=== PATIENT | male | born 1990 | race Two or more races ===

== ENCOUNTER 2023-02-24 18:19 | Emergency (ER) | payer OTHER ==
[~2023-02-24] VITALS: Ht 177.8 cm; Wt 74.8 kg
== END 2023-02-24 21:49 | disposition home or self-care (01) ==
LOC: ER 18:19
DX: R10.84 Generalized abdominal pain (principal); Z87.09 Personal history of other diseases of the respiratory system

== ENCOUNTER 2025-10-01 17:35 | Inpatient (IN) | payer OTHER ==
[~2025-10-01] VITALS: Ht 177.8 cm; Wt 81.6 kg
--- NOTE | 2025-10-01 17:50 | NUR ---
PTE ALERTA Y ORIENTADO X3 REFIERE DOLOR ABDOMINAL DESDE EL SABADO. SE MIDEN S/V Y S
[2025-10-01] MEDS ORDERED: ONDANSETRON HCL 2 MG/ML VIAL IV ONE (19:00)
[2025-10-01] MEDS ORDERED: 0.9 % SODIUM CHLORIDE 500 ML IV SCH (19:00)
[2025-10-01] MEDS ORDERED: 0.9 % SODIUM CHLORIDE 500 ML IV ONE (19:00)
[2025-10-01] MEDS ORDERED: MORPHINE SULFATE 4 MG/ML CARTRIDGE IV ONE (19:00)
[2025-10-01] MEDS ORDERED: FAMOTIDINE/PF 20 MG/2 ML VIAL IV ONE (19:00)
[2025-10-01] MEDS ORDERED: FAMOTIDINE/PF 20 MG/2 ML VIAL ONE (19:04)
[2025-10-01] MEDS ORDERED: ONDANSETRON HCL 2 MG/ML VIAL ONE (19:04)
[2025-10-01 19:32] LABS: BASO % 0.3 % (0.1-1.2); EOS # 0.02 (0.04-0.54); EOS % 0.2 % (0.7-7.0); LYMPH # 2.12 (1.18-3.74); LYMPH % 24.7 % (19.3-53.1); MEAN PLATELET VOLUME 9.40 fl (9.4-12.4); MONO # 0.50 (0.24-0.82); MONO % 5.8 % (4.7-12.5); NEUT # 5.90 (1.56-6.13); NEUT % 68.9 % (34.0-71.1); RED CELL DISTRIBUTION WIDTH 13.0 % (11.6-14.4)
[2025-10-01 19:35] LABS: ERYTHROCYTE SEDIMENTATION RATE 1 mm/hr (0-15)
--- NOTE | 2025-10-01 19:47 | NUR ---
RN.CORTEZ ORIENTA PTE SOBRE TRATAMIENTO MEDICO Y LO EJECUTA EN WHITESIDE TOTALIDAD
[2025-10-01 20:04] LABS: INR 1.09
[2025-10-01 20:12] LABS: ALT/SGPT 22 U/L (12-78); AST/SGOT 10 U/L (15-37); BILIRUBIN TOTAL 0.87 mg/dL (0.3-1.2); BUN CREA RATIO 12 (7.0-25.0); CREATININE SERUM 1.31 mg/dL (0.70-1.30); GFR 61.91; GLOBULINA 3.4 G/DL (2.4-3.5); GLUCOSE FASTING 93 mg/dL (65-100); OSMOLALITY SERUM 280 MOSM/KG (275-295)
[2025-10-01 22:14] LABS: URINE APPEARANCE Clear; URINE BILIRRUBIN Negative (NEGATIVE); URINE BLOOD Negative; URINE COLOR Yellow; URINE GLUCOSE Negative (NEGATIVE); URINE LEUKOCYTE Negative; URINE NITRATE Negative; URINE PROTEIN Negative (NEGATIVE); URINE UROBILINOGEN 1.0 E.U./dl
[2025-10-01 22:17] LABS: URINE BACTERIA 9.5 uL (0.0-1933); URINE EPITHELIAL CELLS 1.6 uL (0.0-38.8); URINE RBC 8.2 uL (0.0-20.8)
[2025-10-01 22:26] LABS: URINE CAST 0.58 uL (0.0-1.40); URINE KETONE 80 (NEGATIVE); URINE WBC 1.5 uL (0.0-23.2)
--- NOTE | 2025-10-01 23:30 | NUR ---
SE RECIBE PTE ALERTA Y ORIENTADO X3 EN LANDRY DE OBSERVACION, PTE CON BUEN PATRON RESPIRATORIO, CANALIZADO Y RECIBIENDO IV FLUIDS APOORVA ORDEN MEDICA. PTE CON CONSULTA PENDIENTE.
[2025-10-02] MEDS ORDERED: FAMOTIDINE/PF 20 MG/2 ML VIAL IV ONE (00:30)
[2025-10-02] MEDS ORDERED: ONDANSETRON HCL 2 MG/ML VIAL IV ONE (00:30)
[2025-10-02] MEDS ORDERED: 0.9 % SODIUM CHLORIDE 500 ML IV ONE (00:30)
[2025-10-02] MEDS ORDERED: KETOROLAC TROMETHAMINE 30 MG VIAL IV ONE (00:30)
[2025-10-02] MEDS ORDERED: KETOROLAC TROMETHAMINE 30 MG VIAL ONE (00:39)
[2025-10-02] MEDS ORDERED: ONDANSETRON HCL 2 MG/ML VIAL ONE (00:39)
[2025-10-02] MEDS ORDERED: FAMOTIDINE/PF 20 MG/2 ML VIAL ONE ×2 (00:40→12:47)
[2025-10-02] MEDS ORDERED: FAMOTIDINE/PF 20 MG/2 ML VIAL IV SCH (01:59)
[2025-10-02] MEDS ORDERED: MORPHINE SULFATE 4 MG/ML CARTRIDGE IV ONE (02:00)
[2025-10-02] MEDS ORDERED: 0.9 % SODIUM CHLORIDE 500 ML IV SCH (02:00)
[2025-10-02] MEDS ORDERED: ONDANSETRON HCL 4 MG in 0.9 % SODIUM CHLORIDE 50 ML IV PRN ×2 (02:00→14:15)
[2025-10-02] MEDS ORDERED: MORPHINE SULFATE 4 MG/ML CARTRIDGE IV PRN (02:00)
[2025-10-02] MEDS ORDERED: FAMOtidine 10 MG/ML (4ML VIAL) IV PUSH ONE (12:00)
[2025-10-02] MEDS ORDERED: SIMETHICONE 125 MG CAPSULE PO ONE (12:00)
[2025-10-02] MEDS ORDERED: SUCRALFATE 1 G TABLET PO ONE (12:00)
[2025-10-02] MEDS ORDERED: PANTOPRAZOLE SODIUM 40 MG/VIAL VIAL IV SCH (14:12)
[2025-10-02] MEDS ORDERED: METOCLOPRAMIDE HCL 10 MG in DEXTROSE 5 % IN WATER 50 ML IV ONE (14:15)
[2025-10-02] MEDS ORDERED: RINGERS SOLUTION,LACTATED 1,000 ML IV SCH (14:15)
[2025-10-02] MEDS ORDERED: MORPHINE SULFATE 2 MG/ML SYRINGE IV PRN (14:30)
[2025-10-02] MEDS ORDERED: METOCLOPRAMIDE HCL 5 MG/ML VIAL ONE (14:37)
[2025-10-02] MEDS ORDERED: FAMOTIDINE/PF 20 MG in 0.9 % SODIUM CHLORIDE 8 ML IV PUSH SCH (17:00)
[2025-10-02 17:41] VITALS: BP 110/80
[2025-10-03 02:29] VITALS: BP 135/89; O2SAT 100
[2025-10-03 08:50] VITALS: BP 156/115; O2SAT 97
[2025-10-03 19:05] VITALS: BP 135/85; O2SAT 100
[2025-10-04 03:17] VITALS: BP 156/100; O2SAT 100
[2025-10-04 09:01] VITALS: BP 156/96; O2SAT 98
== END 2025-10-04 16:46 | disposition left against medical advice (07) | DRG 392 ==
LOC: ER 17:35 → SEC-K 10-02 17:07 → MEDI 10-02 17:07
PROVIDERS: General Practice; ADMIT Student in an Organized Health Care Education/Training Program; ATTEND Student in an Organized Health Care Education/Training Program
PROC: BW21ZZZ Computerized Tomography (CT Scan) of Abdomen and Pelvis (ICD-10-PCS; principal; 2025-10-01)
PROC: BW40ZZZ Ultrasonography of Abdomen (ICD-10-PCS; 2025-10-02)
DX: K29.70 Gastritis, unspecified, without bleeding (principal); T40.725A Adverse effect of synthetic cannabinoids, initial encounter